=== PATIENT | female | born 1960 ===

== ENCOUNTER 2017-01-16 17:28 | Emergency (ER) | payer OTHER ==
[2017-01-16 17:58] VITALS: BP 114/73; PULSE 70; RESP 16; TEMP 97.7; O2SAT 99
--- NOTE | 2017-01-16 18:34 | ED PDOC ---
HPI: Psych/Substance Abuse Time Seen by Provider: 01/16/17 18:00 Chief Complaint (Nursing): Psychiatric Evaluation Chief Complaint (Provider): Psychiatric evaluation History Per: Patient, Family (daughter) History/Exam Limitations: no limitations Severity: Moderate Associated Symptoms: Depression, Other (insomnia, hears voices that tell her about the events of her life) Additional Complaint(s): 56 year old female patient with a pertinent medical history of depression (but doesn't take medication for it) accompanied by her daughter presents to the ED for a psychiatric evaluation. Her daughter reports that she has been emotional and crying at random times. Patient doesn't know why, but she feels sad. She also reports having trouble sleeping for the past month. She also reports that she has been hearing voices that tell her about the events of her life. PMD: Selin Ware MD Past Medical History Reviewed: Historical Data, Nursing Documentation, Vital Signs Vital Signs: Last Vital Signs Temp 97.7 F 01/16/17 17:55 Pulse 70 01/16/17 17:55 Resp 16 01/16/17 17:55 BP 114/73 01/16/17 17:55 Pulse Ox 99 01/16/17 17:55 - Medical History PMH: Asthma, Depression, Gastritis - Surgical History Other surgeries: surgery for endometriosis - Family History Family History: States: Unknown Family Hx - Social History Alcohol: None Drugs: Denies - Home Medications Home Medications: Ambulatory Orders Medication Instructions Recorded Glaucoma Eye Drops 1 drop BOTHEYES DAILY 12/02/16 Omeprazole mg PO DAILY 12/02/16 Omeprazole 40 mg PO DAILY #30 ecc 12/02/16 Hydroxyzine Pamoate [Vistaril] 1 - 2 cap PO Q8 PRN #7 capsule 01/16/17 - Allergies Allergies/Adverse Reactions: Allergies Allergy/AdvReac Type Severity Reaction Status Date / Time No Known Allergies Allergy Verified 07/09/14 11:06 Review of Systems ROS Statement: Except As Marked, All Systems Reviewed And Found Negative Neurological: Positive for: Other (insomnia) Psych: Positive for: Depression Physical Exam - Reviewed Nursing Documentation Reviewed: Yes Vital Signs Reviewed: Yes - Physical Exam Appears: Positive for: Well, Non-toxic, No Acute Distress Head Exam: Positive for: ATRAUMATIC, NORMOCEPHALIC Skin: Positive for: Normal Color, Warm, Dry Eye Exam: Positive for: Normal appearance Cardiovascular/Chest: Positive for: Regular Rate, Rhythm, Chest Non Tender Respiratory: Positive for: Normal Breath Sounds. Negative for: Respiratory Distress Neurologic/Psych: Positive for: Alert, Oriented (3x), Mood/Affect (happy, calm) - ECG O2 Sat by Pulse Oximetry: 99 (RA) Pulse Ox Interpretation: Normal - Progress ED Course And Treament: Pt. evaluated by Alonso pang, who spoke with Dr. Laura and states pt. can be discharged and prescribed Vistaril for insomnia. Also states that pt. can f/u with her psychiatrist which she has an appointment on . Medical Decision Making Medical Decision Makin:00 Initial impression: 56 year old female with depression Initial plan: * Crisis evaluation as ordered * reevaluation Scribe Attestation: Documented by Gabriella Rose, acting as a scribe for Panchito Chavez Provider Scribe Attestation: All medical record entries made by the Scribe were at my direction and personally dictated by me. I have reviewed the chart and agree that the record accurately reflects my personal performance of the history, physical exam, medical decision making, and the department course for this patient. I have also personally directed, reviewed, and agree with the discharge instructions and disposition. Disposition - Clinical Impression Clinical Impression: Depression - Patient ED Disposition Is Patient to be Admitted: No - Disposition Disposition: Routine/Home Disposition Time: 21:30 Condition: STABLE Additional Instructions: Follow up with your psychiatrist on as previously scheduled without fail. Prescriptions: Hydroxyzine Pamoate [Vistaril] 1 - 2 cap PO Q8 PRN #7 capsule PRN Reason: Insomnia Instructions: Depression (ED) Print Language: YAKUT
== END 2017-01-16 23:56 | disposition home or self-care (01) ==
LOC: H.ER 17:28
DX: F32.9 Major depressive disorder, single episode, unspecified (principal)

== ENCOUNTER 2018-08-05 10:20 | Emergency (ER) | payer MEDICAID, OTHER ==
[2018-08-05 10:31] VITALS: BP 120/79; PULSE 66; TEMP 97.2; O2SAT 99
[2018-08-05 10:32] VITALS: BMI 38.0
[2018-08-05] MEDS ORDERED: Oxycodone/Acetaminophen 5/325 mg Tab PO STA (11:25)
--- NOTE | 2018-08-05 11:50 | ED PDOC ---
Lower Extremity Pain/Injury Time Seen by Provider: 08/05/18 10:45 Chief Complaint (Nursing): Lower Extremity Problem/Injury Chief Complaint (Provider): Lower Extremity Problem/Injury History Per: Patient History/Exam Limitations: no limitations Onset/Duration Of Symptoms: Days Additional Complaint(s): 57 years old female with history of gastritis and depression presents to ER for evaluation of acute exacerbation of left hip and upper leg pain for a few days. Patient reports pain worsens with walking and states pain is intense. She reports feeling her bones are turning into "jello". Patient states she is supposed to be on medications for gastritis but ran out of them and reports she has not seen a doctor for a while. She denies any chest pain, vomiting, trauma, fall, swelling or numbness of legs. PMD: non provided Past Medical History Reviewed: Historical Data, Nursing Documentation, Vital Signs Vital Signs: Last Vital Signs Temp 97.2 F L 08/05/18 10:30 Pulse 66 08/05/18 10:30 Resp BP 120/79 08/05/18 10:30 Pulse Ox 99 08/05/18 10:30 - Medical History PMH: Asthma, Colonic Polyps (CLAIMS CANCEROUS POLYPS), Depression, Gastritis, Hypercholesterolemia Denies: Diabetes, Fractures, Hepatitis, HIV, HTN, Chronic Kidney Disease, Seizures, Sexually Transmitted Disease, Sleep Apnea, TIA - Surgical History Surgical History: Endoscopy - Family History Family History: States: Unknown Family Hx - Social History Current smoker - smoking cessation education provided: No Alcohol: None Drugs: Denies - Home Medications Home Medications: Ambulatory Orders Medication Instructions Recorded Glaucoma Eye Drops 1 drop BOTHEYES DAILY 12/02/16 Famotidine [Pepcid] 20 mg PO BID 12/29/17 Pill For Depression 1 tab PO DAILY 01/22/18 Acetaminophen [Tylenol Extra 500 mg PO Q4 #100 tablet 08/05/18 Strength] Famotidine [Pepcid] 40 mg PO DAILY #30 tablet 08/05/18 - Allergies Allergies/Adverse Reactions: Allergies Allergy/AdvReac Type Severity Reaction Status Date / Time No Known Allergies Allergy Verified 08/05/18 11:07 Review of Systems ROS Statement: Except As Marked, All Systems Reviewed And Found Negative Cardiovascular: Negative for: Chest Pain Gastrointestinal: Negative for: Vomiting Musculoskeletal: Positive for: Leg Pain (Left hip and upper leg. No fall, trauma or swelling of legs.) Neurological: Negative for: Numbness (of legs) Physical Exam - Reviewed Nursing Documentation Reviewed: Yes Vital Signs Reviewed: Yes - Physical Exam Appears: Positive for: Non-toxic, No Acute Distress Head Exam: Positive for: ATRAUMATIC, NORMOCEPHALIC Extremity: Positive for: Normal ROM. Negative for: Tenderness (on palpation to legs), Swelling (of legs), Other (pain on flexing hip while laying down) Neurologic/Psych: Positive for: Alert, Oriented (x3) - ECG O2 Sat by Pulse Oximetry: 99 (RA) Pulse Ox Interpretation: Normal Medical Decision Making Medical Decision Making: Time: 1125 --Leg pain most likely due to arthritis --Will give Percocet and Pepcid PO --Left and right hip x-ray --Reevaluate patient 1203 Left Hip X-Ray FINDINGS: BONES: Frontal view of the pelvis and frontal and frogleg views of the left hip were performed. Bony structures are intact. No fracture is seen. No femoral head flattening is seen. No lytic process is identified. Mild degenerative changes are identified. Left femoral shaft is intact. Visualized right hip is intact. JOINTS: Mild degenerative change. No femoral head flattening. SOFT TISSUES: Normal. OTHER FINDINGS: None. IMPRESSION: No fracture. 1224 Right Hip X-Ray FINDINGS: BONES: Normal. No fracture. No femoral head flattening is seen. JOINTS: Within normal limits. No significant spurring or erosion is noted. Trochanters are within normal limits. SOFT TISSUES: Normal. OTHER FINDINGS: None. IMPRESSION: Unremarkable x-ray exam of the right hip. 1310 X-ray shows no acute fracture or dislocation. Patient reports improvement of symptoms. Patient is stable for discharge with a prescription of Naproxen, given referral for orthopedic. Scribe Attestation: Documented by Denise Cohen, acting as a scribe for Gabriella Osuna MD. Provider Scribe Attestation: All medical record entries made by the Scribe were at my direction and personally dictated by me. I have reviewed the chart and agree that the record accurately reflects my personal performance of the history, physical exam, medical decision making, and the department course for this patient. I have also personally directed, reviewed, and agree with the discharge instructions and disposition. Disposition - Clinical Impression Clinical Impression: Hip pain, Chronic hip pain - Disposition Referrals: [facility] at [facility] [Outside] Disposition: Routine/Home Disposition Time: 13:10 Condition: IMPROVED Additional Instructions: Take Tylenol as needed for hip pain. Take Pepcid daily for gastritis. Follow up with the orthopedic clinic for further workup of hip pain. Prescriptions: Acetaminophen [Tylenol Extra Strength] 500 mg PO Q4 #100 tablet Famotidine [Pepcid] 40 mg PO DAILY #30 tablet Instructions: Hip Pain (DC) Forms: [facility] (Persian), [facility] (Kenyan) Print Language: LATVIAN
--- NOTE | 2018-08-05 12:05 | RAD ---
PROCEDURE: Left Hip X-ray Radiographs. HISTORY: left hip pain COMPARISON: None. FINDINGS: BONES: Frontal view of the pelvis and frontal and frogleg views of the left hip were performed. Bony structures are intact. No fracture is seen. No femoral head flattening is seen. No lytic process is identified. Mild degenerative changes are identified. Left femoral shaft is intact. Visualized right hip is intact. JOINTS: Mild degenerative change. No femoral head flattening. SOFT TISSUES: Normal. OTHER FINDINGS: None. IMPRESSION: No fracture.
--- NOTE | 2018-08-05 12:25 | RAD ---
PROCEDURE: Right Hip Radiographs. HISTORY: right hip pain COMPARISON: None. FINDINGS: BONES: Normal. No fracture. No femoral head flattening is seen. JOINTS: Within normal limits. No significant spurring or erosion is noted. Trochanters are within normal limits. SOFT TISSUES: Normal. OTHER FINDINGS: None. IMPRESSION: Unremarkable x-ray exam of the right hip.
== END 2018-08-05 14:29 | disposition home or self-care (01) ==
LOC: H.ER 10:20
DX: M25.552 Pain in left hip (principal); G89.29 Other chronic pain; J45.909 Unspecified asthma, uncomplicated; Z86.59 Personal history of other mental and behavioral disorders